=== PATIENT | female | born 1985 | race American Indian/Alaskan Native ===

== ENCOUNTER 2020-02-25 20:50 | Emergency (ER) | payer SELFPAY ==
[2020-02-25 20:56] VITALS: BP 118/76
--- NOTE | 2020-02-25 21:02 | Emergency Department Report ---
Chief Complaint: Urogenital-Female Stated Complaint: VAGINAL DISCHARGE Time Seen by Provider: 02/25/20 20:58 - HPI History of Present Illness: Patient is a 34-year-old female who presents complaints of "wanting a full STD panel, she states that she just wants to be tested for everything." She states that she had intercourse and that the condom broke. She states that she has been having some mild discharge and outer irritation that began yesterday. She denies any fever, vomiting, diarrhea, abdominal pain, pelvic pain, back pain, dysuria, lesions, blisters, hematuria. No past medical history. Allergy to Flagyl. LNMP: 02/11/2020 Vitals are normal On exam: Non toxic appearing, no acute distress atraumatic, normocephalic normal appearance of the eyes, EOMI, no periorbital edema or ecchymosis moist mucus membranes No respiratory distress or accessory muscle use A&O x4, normal gait Patient is presenting for STD testing she is having mild discharge with outer irritation She denies any fever, vomiting, diarrhea, abdominal pain, pelvic pain, back pain, dysuria, lesions, blisters, hematuria she has no clinical signs of PID she has no clinical signs of UTI pt will be referred to a clinic and the health department in order to receive a full STD panel Patient given the appropriate resources Discussed strict return precautions Medical screening performed and there is no threat to life or limb at this time - Exam Vital Signs: Vital Signs 02/25/20 20:52 Temperature 98.7 F Pulse Rate 95 H Respiratory 17 Rate Blood Pressure 118/76 O2 Sat by Pulse 97 Oximetry MSE screening note: Focused history and physical exam performed. ED Disposition for MSE Clinical Impression: Concern about STD in female without diagnosis Disposition: Z-07 MED SCREENING EXAM-LEFT Is pt being admited?: No Does the pt Need Aspirin: No Condition: Stable Instructions: Safe Sex Additional Instructions: Please follow-up with the health department or clinic for full STD panel. Please have any partner tested and treated as well. Avoid sexual intercourse. Return to emergency room for any new or worsening symptoms. Referrals: [facility] [Provider Group] - 2-3 Days [facility] [Outside] - 2-3 Days PRIMARY [facility]ARE, [Primary Care Provider] - 2-3 Days Print Language: SCOTTISH
== END 2020-02-25 20:58 | disposition left against medical advice (07) ==
LOC: ED 20:50
DX: N89.8 Other specified noninflammatory disorders of vagina (principal); Z53.21 Procedure and treatment not carried out due to patient leaving prior to being seen by health care provider